=== PATIENT | female | born 1990 | race Caucasian/White ===

== ENCOUNTER 2018-04-30 01:24 | Emergency (ER) | payer SELFPAY ==
--- NOTE | 2018-04-30 01:34 | Emergency Department Record ---
History of Present Illness - General Stated Complaint: ABDOMINAL PAIN Time Seen by Provider: 04/30/18 01:26 Source: Patient Mode of Arrival: Ambulatory Limitations: No limitations - History of Present Illness Initial Comments: 27 yo presents with a few days of pain in the lower groin/labial area. She reports she had the area drained a month ago at [facility]. The area improved but the pain and swelling returned the last two days. She was given a referral for OBGYN but she did not follow up at that time. [facility] records indicate she had and I and D of a Bartholin's gland cyst. No abnormal vaginal bleeding or discharge. MD Complaint: Abdominal pain -: Days(s) Location: Suprapubic Radiation: Suprapubic Migration to: Suprapubic Severity: Moderate Quality: Aching Consistency: Constant Improves With: Nothing Worsens With: Nothing Context: Recent surgery/procedure (One month ago) Associated Symptoms: Denies other symptoms - Related Data Previous Rx's Medication Instructions Recorded Doxycycline Hyclate 100 mg PO BID #14 tab.dr 04/30/18 Hydrocodone/Acetaminophen [[place] 1 each PO Q6H #10 tablet 04/30/18 5-325 Tablet] Allergies Allergy/AdvReac Type Severity Reaction Status Date / Time ketorolac [From Toradol] Allergy HIVES Verified 04/30/18 02:19 Review of Systems Constitutional: Denies: Chills, Fever, Malaise, Weakness Eyes: Denies: Eye discharge ENT: Denies: Congestion, Throat pain Respiratory: Denies: Cough, Dyspnea Cardiovascular: Denies: Chest pain, Syncope Endocrine: Denies: Fatigue Gastrointestinal: Denies: Abdominal pain, Diarrhea, Nausea, Vomiting Genitourinary: Reports: Other (labial swelling). Denies: Dysuria, Frequency, Hematuria, Urgency Musculoskeletal: Denies: Arthralgia, Back pain, Myalgia Skin: Denies: Bruising, Change in color, Rash Neurological: Denies: Headache Psychiatric: Denies: Anxiety Hematological/Lymphatic: Denies: Easy bleeding, Easy bruising, Swollen glands Physical Exam - General General Appearance: Alert, Oriented x3, Cooperative, No acute distress Limitations: No limitations - Head Head exam: Normal inspection - Eye Eye exam: Normal appearance. negative: Conjunctival injection, Scleral icterus - ENT ENT exam: Normal exam Ear exam: Normal external inspection Nasal Exam: Normal inspection Mouth exam: Normal external inspection - Neck Neck exam: Normal inspection - Respiratory Respiratory exam: Normal lung sounds bilaterally. negative: Respiratory distress, Rhonchi, Stridor, Wheezes - Cardiovascular Cardiovascular Exam: Regular rate, Normal rhythm, Normal heart sounds - GI/Abdominal GI/Abdominal exam: Soft. negative: Distended, Guarding, Rebound, Rigid, Tenderness - exam: Abnormal external exam, Other (tender, swollen right posterior labial area with palpable fluctuance, normal anus). negative: Adnexal mass (L), Adnexal mass (R), Adnexal tenderness (L), Adnexal tenderness (R), Vaginal discharge - Extremities Extremities exam: Normal inspection - Back Back exam: Denies: CVA tenderness (R), CVA tenderness (L), Tenderness - Neurological Neurological exam: Alert, Normal gait, Oriented X3 - Psychiatric Psychiatric exam: Normal affect, Normal mood. negative: Agitated, Anxious - Skin Skin exam: Dry, Intact, Normal color, Warm Course - Reevaluation(s) Reevaluation #1: The examination demonstrates an area of tenderness, swelling consistent with a Bartholins gland cyst possibly infected. I recommended drainage for symptomatic relief. I explained there are no immediately available Word Catheter's available but the area can be drained for relief She will then need to call for MACHINE TESTER follow up either through her [facility] referral or a number for local MACHINE TESTER will be provided as well. We discussed the procedure, risk of pain, bleeding, temporary relief. Verbal consent obtained with understanding. Procedure I and D of abscess/Cyst Betadine Prep 11 blade used to make a 1cm incision Serosanguinous drainage with slight pus then blood Given no word catheter available I tried to place 1/4 plain pack but after several attempts it would not stay in the cavity The patient tolerated this well She is to call the MACHINE TESTER tomorrow for close follow up 04/30/18 02:08 Disposition Disposition: Discharge Clinical Impression: Bartholin's gland abscess, Encounter for incision and drainage procedure Disposition: Home, Self-Care Condition: (1) Good Instructions: Abscess Incision and Drainage (ED), Bartholin Cyst (ED) Additional Instructions: Call the numbers provided for follow up with MACHINE TESTER to evaluate the recurrent Bartholin Gland cyst infection Be seen sooner if you have uncontrolled pain, fever, swelling You may take sitz baths daily to clean the area and for comfort Off work Saturday and . Prescriptions: Doxycycline Hyclate 100 mg PO BID #14 tab. Hydrocodone/Acetaminophen [[place] 5-325 Tablet] 1 each PO Q6H #10 tablet Referrals: KAILEE LANDRY D.O. [DOCTOR OF OSTEOPATH] - Forms: Patient Portal Access Time of Disposition: 02:23 Quality - Quality Measures Quality Measures: N/A - Blood Pressure Screening Does Patient Have Any of the Following: No Blood Pressure Classification: Normal BP Reading Systolic Measurement: 113 Diastolic Measurement: 65 Screening for High Blood Pressure: < Normal BP, F/U Not Required > [G8783] Pre-Hypertensive Follow-up Interventions: Referral to alternative/primary care provider.
[2018-04-30] MEDS ORDERED: HYDROCODONE/APAP 7.5/325MG TABLET PO ONE (01:43)
[2018-04-30] MEDS ORDERED: DOXYCYCLINE HYCLATE 100 MG CAPSULE PO ONE (02:06)
== END 2018-04-30 02:38 | disposition home or self-care (01) ==
LOC: ER 01:24
DX: N75.1 Abscess of Bartholin's gland (principal)
CPT/HCPCS: 56420; 99284

== ENCOUNTER 2018-07-18 09:53 | Emergency (ER) | payer SELFPAY ==
--- NOTE | 2018-07-18 11:16 | Emergency Department Record ---
History of Present Illness - General Chief complaint: Pain Stated complaint: RIGHT SHOULDER PAIN Time Seen by Provider: 07/18/18 10:21 Source: Patient Mode of Arrival: Ambulatory Limitations: No limitations - History of Present Illness Initial comments: pt has been having pain in her r shoulder for 5 mos. she had the same pain a year ago and saw a dr and was told that it was her rotator cuff. the pain got better after 2 mos but then got worse again 5 mos ago. she decided to come get checked out today. MD Complaint: Extremity pain Onset/Timin -: Year(s) Location: Right, Shoulder History of Same: Yes Radiation: Distal Severity scale (1-10): 7 Quality: Dull Consistency: Constant Improves with: Nothing Worsens with: Exertion Associated Symptoms: Denies other symptoms - Related Data Home Medications Medication Instructions Recorded Confirmed Last Taken No Home Med [NO HOME MEDS] 07/18/18 07/18/18 Unknown Allergies Allergy/AdvReac Type Severity Reaction Status Date / Time ketorolac [From Toradol] Allergy HIVES Verified 04/30/18 02:19 Travel Screening - Travel/Exposure Within Last 30 Days Have you traveled within the last 30 days?: No Review of Systems Reviewed: No additional complaints except as noted below Constitutional: Reports: As per HPI. Denies: Chills, Fever, Malaise, Night sweats, Weakness, Weight change Eyes: Reports: As per HPI. Denies: Eye discharge, Eye pain, Photophobia, Vision change ENT: Reports: As per HPI. Denies: Congestion, Dental pain, Ear pain, Epistaxis, Hearing loss, Throat pain Respiratory: Reports: As per HPI. Denies: Cough, Dyspnea, Hemoptysis, Stridor, Wheezes Cardiovascular: Reports: As per HPI. Denies: Arrhythmia, Chest pain, Dyspnea on exertion, Edema, Murmurs, Orthopnea, Palpitations, Paroxysmal nocturnal dyspnea, Rheumatic Fever, Syncope Endocrine: Reports: As per HPI. Denies: Fatigue, Heat or cold intolerance, Polydipsia, Polyuria Gastrointestinal: Reports: As per HPI. Denies: Abdominal pain, Constipation, Diarrhea, Hematemesis, Hematochezia, Melena, Nausea, Vomiting Genitourinary: Reports: As per HPI. Denies: Abnormal menses, Discharge, Dyspareunia, Dysuria, Frequency, Hematuria, Incontinence, Retention, Urgency Musculoskeletal: Reports: As per HPI. Denies: Arthralgia, Back pain, Gout, Joint swelling, Myalgia, Neck pain Skin: Reports: As per HPI. Denies: Bruising, Change in color, Change in hair/nails, Lesions, Pruritus, Rash Neurological: Reports: As per HPI. Denies: Abnormal gait, Confusion, Headache, Numbness, Paresthesias, Seizure, Tingling, Tremors, Vertigo, Weakness Psychiatric: Reports: As per HPI. Denies: Anxiety, Auditory hallucinations, Depression, Homicidal thoughts, Suicidal thoughts, Visual hallucinations Hematological/Lymphatic: Reports: As per HPI. Denies: Anemia, Blood Clots, Easy bleeding, Easy bruising, Swollen glands Past Medical History - SOCIAL HISTORY Smoking Status: Current every day smoker - RESPIRATORY Hx Respiratory Disorders: No - CARDIOVASCULAR Hx Cardio Disorders: No - NEURO Hx Neuro Disorders: No - GI Hx GI Disorders: No - Hx Genitourinary Disorders: Yes Comment:: Ovarian cysts - ENDOCRINE Hx Endocrine Disorders: No - MUSCULOSKELETAL Hx Musculoskeletal Disorders: No - PSYCH Hx Psych Problems: No - HEMATOLOGY/ONCOLOGY Hx Hematology/Oncology Disorders: No Family Medical History Any Significant Family History?: Yes Hx Cancer: Mother, Grandparents Hx Resp Disorders: Grandparents Physical Exam - General General Appearance: Alert, Oriented x3, Cooperative, Mild distress - Head Head exam: Normal inspection - Eye Eye exam: Normal appearance, PERRL, EOMI Pupils: Normal accommodation - ENT ENT exam: Normal exam, Mucous membranes moist, Normal external ear exam, Normal orophraynx Ear exam: Normal external inspection. negative: External canal tenderness Nasal Exam: Normal inspection. negative: Discharge, Sinus tenderness Mouth exam: Normal external inspection, Tongue normal Teeth exam: Normal inspection. negative: Dental caries Throat exam: Normal inspection. negative: Tonsillar erythema, Tonsillar exudate - Neck Neck exam: Normal inspection, Full ROM. negative: Tenderness - Respiratory Respiratory exam: Normal lung sounds bilaterally. negative: Respiratory distress - Cardiovascular Cardiovascular Exam: Regular rate, Normal rhythm, Normal heart sounds - GI/Abdominal GI/Abdominal exam: Soft, Normal bowel sounds. negative: Tenderness - Rectal Rectal exam: Deferred - exam: Deferred - Extremities Extremities exam: Normal capillary refill, Tenderness (tender over trapezius and rotator cuff). negative: Full ROM - Back Back exam: Reports: Normal inspection, Full ROM. Denies: Muscle spasm, Rash noted, Tenderness - Neurological Neurological exam: Alert, CN II-XII intact, Normal gait, Oriented X3 - Psychiatric Psychiatric exam: Normal affect, Normal mood - Skin Skin exam: Dry, Intact, Normal color, Warm Course Vital Signs 07/18/18 09:56 Temperature 98.3 F Pulse Rate 78 Respiratory 20 Rate Blood Pressure 143/90 Pulse Ox 100 - Reevaluation(s) Reevaluation #1: 07/18/18 11:16 pt upset that she couldnt have an immediate mri. she is concerned because her mother had a tumor in her shoulder. it was explained that xrays need to be done first and that she would get a referral to ortho Disposition Disposition: Discharge Clinical Impression: Injury of right rotator cuff Qualifiers: Encounter type: initial encounter Qualified Code(s): S46.001A - Unspecified injury of muscle(s) and tendon(s) of the rotator cuff of right shoulder, initial encounter Disposition: Home, Self-Care Condition: (1) Good Instructions: Rotator Cuff Injury (ED) Additional Instructions: follow up with orthopedic doctor. return sooner if worse. apply ice and moist heat. motrin with food for pain. wear sling for 3 days only. Referrals: VIDAL PERSAUD [DOCTOR OF OSTEOPATH] - [facility] Specialty Clinics [Provider Group] Forms: Patient Portal Access Quality - Quality Measures Quality Measures: N/A - Blood Pressure Screening Does Patient Have Any of the Following: No Blood Pressure Classification: Hypertensive Reading Systolic Measurement: 143 Diastolic Measurement: 90 Screening for High Blood Pressure: < First Hypertensive BP, F/U Documented > [G8950] First Hypertensive Follow-up Interventions: Follow-up with rescreen GT 1 day and LT 4 weeks.
[2018-07-18] MEDS ORDERED: HYDROCODONE/APAP 5/325MG TABLET PO ONE (11:50)
--- NOTE | 2018-07-22 05:59 | RADIOLOGY REPORT ---
EXAM: RIGHT SHOULDER HISTORY: CHRONIC RIGHT SHOULDER PAIN, NO KNOWN INJURY. TECHNIQUE: Three views of the right shoulder were obtained. Comparison: None. FINDINGS: No evidence of fracture or dislocation. No significant degenerative findings. IMPRESSION: UNREMARKABLE RADIOGRAPHIC APPEARANCE OF THE RIGHT SHOULDER. JOB NUMBER: [id number] [facility]
--- NOTE | 2018-07-22 06:02 | RADIOLOGY REPORT ---
EXAM: CERVICAL SPINE HISTORY: RIGHT SHOULDER PAIN FOR ONE YEAR, NO KNOWN INJURY. TECHNIQUE: Six views of the cervical spine were obtained. Comparison: None. FINDINGS: Straightening and minimal levocurvature of the cervical spine. The vertebral body heights are maintained. Otherwise intact alignment. The disk space heights appear preserved. No significant degenerative findings. No appreciable neural foraminal stenosis. IMPRESSION: MINIMAL CERVICAL SPINE LEVOCURVATURE AND STRAIGHTENING, NONSPECIFIC AND MAY BE POSITIONAL. OTHERWISE, UNREMARKABLE RADIOGRAPHIC APPEARANCE OF THE CERVICAL SPINE. JOB NUMBER: [id number] [facility]
== END 2018-07-18 12:00 | disposition home or self-care (01) ==
LOC: ER 09:53
DX: S46.001A Unspecified injury of muscle(s) and tendon(s) of the rotator cuff of right shoulder, initial encounter (principal); M54.2 Cervicalgia; X58.XXXA Exposure to other specified factors, initial encounter; F17.210 Nicotine dependence, cigarettes, uncomplicated
CPT/HCPCS: 72050; 99283; 99284

== ENCOUNTER 2018-07-26 17:55 | Emergency (ER) | payer SELFPAY ==
--- NOTE | 2018-07-26 18:07 | Emergency Department Record ---
History of Present Illness - General Chief complaint: Rash Stated complaint: RASH ON NECK Time Seen by Provider: 07/26/18 18:03 Source: Patient Mode of Arrival: Ambulatory Limitations: No limitations - History of Present Illness Initial comments: 27 yo female presents to ED for evaluation of a painful rash to the left posterior neck that the patient reports appeared this morning. Patient reports a history of similar symptoms previously with resolution following treatment with acyclovir. Patient denies fevers, chills, or recent illness, denies health problems at her baseline. MD complaint: Rash Onset/Timin -: Days(s) Location: Neck Severity: Moderate Severity scale (1-10): 7 Quality: Burning Consistency: Constant Improves with: None Worsens with: Palpation Context: None Associated symptoms: Itching Treatments Prior to Arrival: None - Related Data Previous Rx's Medication Instructions Recorded Acyclovir 400 mg PO 5XD #35 tablet 07/26/18 Allergies Allergy/AdvReac Type Severity Reaction Status Date / Time ketorolac [From Toradol] Allergy HIVES Verified 04/30/18 02:19 Travel Screening - Travel/Exposure Within Last 30 Days Have you traveled within the last 30 days?: No Review of Systems Constitutional: Denies: Chills, Fever, Malaise, Night sweats Eyes: Denies: Eye discharge, Eye pain ENT: Denies: Congestion, Ear pain, Epistaxis Respiratory: Denies: Cough, Dyspnea Cardiovascular: Denies: Chest pain, Dyspnea on exertion Endocrine: Denies: Fatigue, Heat or cold intolerance Gastrointestinal: Denies: Abdominal pain, Nausea, Vomiting Genitourinary: Denies: Incontinence, Retention Musculoskeletal: Denies: Arthralgia, Back pain Skin: Reports: Rash. Denies: Bruising, Change in color Neurological: Denies: Abnormal gait, Confusion, Headache Psychiatric: Denies: Anxiety Hematological/Lymphatic: Denies: Anemia, Blood Clots Past Medical History - SOCIAL HISTORY Smoking Status: Current every day smoker - RESPIRATORY Hx Respiratory Disorders: No - CARDIOVASCULAR Hx Cardio Disorders: No - NEURO Hx Neuro Disorders: No - GI Hx GI Disorders: No - Hx Genitourinary Disorders: Yes Comment:: Ovarian cysts - ENDOCRINE Hx Endocrine Disorders: No - MUSCULOSKELETAL Hx Musculoskeletal Disorders: No - PSYCH Hx Psych Problems: No - HEMATOLOGY/ONCOLOGY Hx Hematology/Oncology Disorders: No Family Medical History Any Significant Family History?: No Hx Cancer: Mother, Grandparents Hx Resp Disorders: Grandparents Physical Exam - General General Appearance: Alert, Oriented x3, Cooperative, Mild distress Limitations: No limitations - Head Head exam: Atraumatic, Normocephalic, Normal inspection Head exam detail: negative: Abrasion, Contusion, Candelaira's sign, General tenderness, Hematoma, Laceration - Eye Eye exam: Normal appearance. negative: Conjunctival injection, Periorbital swelling, Periorbital tenderness, Scleral icterus - ENT Ear exam: negative: Auricular hematoma, Auricular trauma Nasal Exam: negative: Active bleeding, Discharge, Dried blood, Foreign body Mouth exam: negative: Drooling, Laceration, Muffled voice, Tongue elevation - Neck Neck exam: Other (Vesicular rash to the left posterior paracervical region on examination). negative: Meningismus, Tenderness - Respiratory Respiratory exam: Normal lung sounds bilaterally. negative: Respiratory distress, Rhonchi, Stridor, Wheezes - Cardiovascular Cardiovascular Exam: Regular rate, Normal rhythm, Normal heart sounds - GI/Abdominal GI/Abdominal exam: Soft. negative: Rebound, Rigid, Tenderness - Rectal Rectal exam: Deferred - exam: Deferred - Extremities Extremities exam: Normal inspection. negative: Pedal edema, Tenderness - Back Back exam: Denies: CVA tenderness (R), CVA tenderness (L) - Neurological Neurological exam: Alert, Normal gait, Oriented X3 - Psychiatric Psychiatric exam: Normal affect, Normal mood - Skin Skin exam: Rash Type of lesion: Rash Distribution of rash: Neck Description of rash: Blisters Course - Reevaluation(s) Reevaluation #1: 07/26/18 18:11 Acute rash to the left posterior neck appears c/w possible shingles, given the patient's clinical appearance, will treat with acyclovir as directed. Patient appears stable for discharge at this time. Disposition Disposition: Discharge Clinical Impression: Shingles Qualifiers: Herpes zoster complications: without complications Qualified Code(s): B02.9 - Zoster without complications Disposition: Home, Self-Care Condition: (2) Stable Instructions: Shingles (ED) Additional Instructions: Return to ED if your symptoms worsen or if you have any concerns. Acyclovir as directed. Follow-up with your family doctor in 3-5 days as directed. Prescriptions: Acyclovir 400 mg PO 5XD #35 tablet Forms: Patient Portal Access Time of Disposition: 18:06 Quality - Quality Measures Quality Measures: N/A - Blood Pressure Screening Does Patient Have Any of the Following: No Blood Pressure Classification: Pre-Hypertensive BP Reading Systolic Measurement: 121 Diastolic Measurement: 82 Screening for High Blood Pressure: < Pre-Hypertensive BP, F/U Documented > [G8950] Pre-Hypertensive Follow-up Interventions: Referral to alternative/primary care provider.
== END 2018-07-26 18:15 | disposition home or self-care (01) ==
LOC: ER 17:55
DX: B02.9 Zoster without complications (principal); F17.210 Nicotine dependence, cigarettes, uncomplicated
CPT/HCPCS: 99282

== ENCOUNTER 2018-11-30 15:30 | Emergency (ER) | payer MEDICAID ==
[2018-11-30] MEDS ORDERED: ONDANSETRON HCL IV 4 MG/2 ML VIAL IVP ONE (15:44)
[2018-11-30] MEDS ORDERED: MORPHINE SULFATE 5 MG/ML VIAL IVP ONE ×2 (15:44→16:47)
[2018-11-30] MEDS ORDERED: 0.9 % SODIUM CHLORIDE 1,000 ML BAG IV ONE (15:44)
--- NOTE | 2018-11-30 15:49 | Emergency Department Record ---
History of Present Illness - General Chief Complaint: Abdominal Pain Stated Complaint: LUMP RT SIDE ABD/PAINFUL Time Seen by Provider: 11/30/18 15:44 Source: Patient Mode of Arrival: Ambulatory Limitations: No limitations - History of Present Illness Initial Comments: 28 yo female presents with about two days of increasing upper abdominal pain. She has nausea without vomiting. Over the last 2-3 months she has had fullness or lump in the mid upper abdomen. No vomiting. No diarrhea. No fever. She had her gall bladder out in 2010 at [facility]. She does not recall who her surgeon was at that time. MD Complaint: Abdominal pain -: Month(s) Location: Epigastric Radiation: Epigastric Migration to: Epigastric Severity: Moderate Quality: Aching Consistency: Constant Improves With: Rest Worsens With: Movement Associated Symptoms: Anorexia - Related Data Patient : No Previous Rx's Medication Instructions Recorded Hydrocodone/Acetaminophen [[place] 1 tab PO Q6H PRN #10 tab 11/30/18 5mg/325mg] Allergies Allergy/AdvReac Type Severity Reaction Status Date / Time ketorolac [From Toradol] Allergy HIVES Verified 11/30/18 15:47 Review of Systems Constitutional: Denies: Chills, Fever, Malaise, Weakness Eyes: Denies: Eye discharge ENT: Denies: Congestion, Throat pain Respiratory: Denies: Cough, Dyspnea Cardiovascular: Denies: Chest pain, Palpitations, Syncope Endocrine: Denies: Fatigue, Polydipsia, Polyuria Gastrointestinal: Reports: As per HPI, Abdominal pain, Nausea. Denies: Diarrhea, Vomiting Genitourinary: Denies: Dysuria, Hematuria, Urgency Musculoskeletal: Denies: Arthralgia, Back pain, Myalgia Skin: Denies: Bruising, Change in color, Rash Neurological: Denies: Headache Psychiatric: Denies: Anxiety Hematological/Lymphatic: Denies: Easy bleeding, Easy bruising Past Medical History - SOCIAL HISTORY Smoking Status: Current every day smoker - RESPIRATORY Hx Respiratory Disorders: No - CARDIOVASCULAR Hx Cardio Disorders: No - NEURO Hx Neuro Disorders: No - GI Hx GI Disorders: No - Hx Genitourinary Disorders: Yes Comment:: Ovarian cysts - ENDOCRINE Hx Endocrine Disorders: No - MUSCULOSKELETAL Hx Musculoskeletal Disorders: No - PSYCH Hx Psych Problems: No - HEMATOLOGY/ONCOLOGY Hx Hematology/Oncology Disorders: No Family Medical History Hx Cancer: Mother, Grandparents Hx Resp Disorders: Grandparents Physical Exam - General General Appearance: Alert, Oriented x3, Cooperative, No acute distress Limitations: No limitations - Head Head exam: Atraumatic, Normal inspection - Eye Eye exam: Normal appearance. negative: Conjunctival injection - ENT ENT exam: Normal exam, Mucous membranes moist Ear exam: Normal external inspection Nasal Exam: Normal inspection Mouth exam: Normal external inspection Teeth exam: Normal inspection Throat exam: Normal inspection - Neck Neck exam: Normal inspection - Respiratory Respiratory exam: Normal lung sounds bilaterally. negative: Respiratory distress - Cardiovascular Cardiovascular Exam: Regular rate, Normal rhythm, Normal heart sounds - GI/Abdominal GI/Abdominal exam: Soft, Guarding (tender upper abdomen with an indistinct fullness in the epigastrium, otherwise the lower abdomen is very soft and not tender), Tenderness. negative: Distended, Hernia (No distinct palpable hernia), Rebound - Rectal Rectal exam: Deferred - exam: Deferred - Extremities Extremities exam: Normal inspection, Full ROM, Normal capillary refill. neg ative: Tenderness - Back Back exam: Denies: CVA tenderness (R), CVA tenderness (L) - Neurological Neurological exam: Alert, Oriented X3 - Psychiatric Psychiatric exam: Normal affect, Normal mood - Skin Skin exam: Dry, Intact, Normal color, Warm Course - Reevaluation(s) Reevaluation #1: 11/30/18 16:19 The CBC is normal The UA is normal The HCG is normal 11/30/18 19:[address] demonstrated a tiny upper midline hernia otherwise no acute abnormality The patient with be referred to the general surgery clinic for follow up We discussed reasons for return to the ED for recheck if uncontrolled pain, fever, vomiting or any new concerns Medical Decision Making - Lab Data Result diagrams: 11/30/18 15:50 11/30/18 15:50 Disposition Disposition: Discharge Clinical Impression: Abdominal pain Qualifiers: Abdominal location: unspecified location Qualified Code(s): R10.9 - Unspecified abdominal pain Ventral hernia Qualifiers: Obstruction and gangrene presence: without obstruction or gangrene Qualified Code(s): K43.9 - Ventral hernia without obstruction or gangrene Disposition: Home, Self-Care Condition: (1) Good Instructions: Ventral Hernia (ED) Additional Instructions: Call for a new family doctor for the next available follow up appointment Return to the ER for a recheck if worse, any new concerns or questions Take the prescriptions provided as directed Prescriptions: Hydrocodone/Acetaminophen [[place] 5mg/325mg] 1 tab PO Q6H PRN #10 tab PRN Reason: Pain - General Referrals: JENNY ROSADO M.D. [MEDICAL DOCTOR] - Dash Vergara [DOCTOR OF OSTEOPATH] - [facility] Specialty Clinics [Provider Group] Forms: Patient Portal Access Time of Disposition: 19:32 Quality - Quality Measures Quality Measures: N/A - Blood Pressure Screening Does Patient Have Any of the Following: No Blood Pressure Classification: Pre-Hypertensive BP Reading Systolic Measurement: 129 Diastolic Measurement: 86 Screening for High Blood Pressure: < Pre-Hypertensive BP, F/U Documented > [G8950] Pre-Hypertensive Follow-up Interventions: Referral to alternative/primary care provider.
[2018-11-30 16:01] LABS: ABSOLUTE NEUTROPHIL COUNT 6.13; BASO % 0.2 % (0-6); EOS % 0.8 % (0-6); GRAN % 67.4 % (47-80); HEMATOCRIT 42.3 % (35.0-47.0); HEMOGLOBIN 14.1 gm/dl (11.6-16.0); LYMPH % 26.8 % (16-45); MEAN CELL VOLUME 93.4 fl (81-97); MEAN CORPUSCULAR HEMOGLOBIN 31.1 pg (27-33); MEAN CORPUSCULAR HGB CONC 33.3 g/dl (32-36); MEAN PLATELET VOLUME 12.3 fl (7.4-10.4); MONO % 4.8 % (0-9); PLATELET COUNT 157 K/uL (130-400); RED BLOOD COUNT 4.53 M/uL (3.80-5.40); RED CELL DISTRIBUTION WIDTH 13.8 % (11.5-14.5); WHITE BLOOD COUNT W/O DIFF 9.1 K/uL (4.2-12.2)
[2018-11-30 16:05] LABS: URINE APPEARANCE CLEAR; URINE BILIRUBIN NEGATIVE (NEGATIVE); URINE BLOOD NEGATIVE (NEGATIVE); URINE COLOR YELLOW; URINE GLUCOSE (UA) NEGATIVE (NEGATIVE); URINE KETONE NEGATIVE (NEGATIVE); URINE LEUKOCYTE ESTERASE NEGATIVE (NEGATIVE); URINE NITRITE NEGATIVE (NEGATIVE); URINE PROTEIN NEGATIVE (NEGATIVE); URINE UROBILINOGEN 0.2 E.U./dL (0.20 - 1.00)
[2018-11-30 16:28] LABS: BLOOD UREA NITROGEN 9 mg/dL (6-20); CREATININE 0.5 mg/dL (0.5-0.9); EST GLOMERULAR FILTRATION RATE > 60 mL/min; LIPASE 19 U/L (13-60); TOTAL PROTEIN 7.7 g/dL (6.6-8.7)
[2018-11-30 16:30] LABS: GLUCOSE,RANDOM 78 mg/dL (74-109)
[2018-11-30 16:33] LABS: ALBUMIN 5.1 g/dL (4.0-5.0); ALKALINE PHOSPHATASE 89 U/L (35-104); ALT/SGPT 13 U/L (<33); AST/SGOT 28 U/L (10.0-35.0)
[2018-11-30] MEDS ORDERED: ACETAMINOPHEN 1,000 MG/100 ML BTL IVPB ONE (16:46)
[2018-11-30] MEDS ORDERED: HYDROCODONE/APAP 5/325MG TABLET PO ONE (19:31)
--- NOTE | 2018-12-01 08:05 | CT SCAN REPORT ---
EXAM: CT OF THE ABDOMEN AND PELVIS WITH CONTRAST HISTORY: UPPER ABDOMINAL PAIN WITH A PALPABLE LUMP IN THE EPIGASTRIC REGION. PRIOR CHOLECYSTECTOMY AND APPENDECTOMY. TECHNIQUE: Standard CT imaging of the abdomen and pelvis with intravenous contrast were obtained. Delayed images are obtained through the kidneys. Comparison: None. FINDINGS: The lung bases are clear. The liver is unremarkable. The gallbladder has been resected. The common bile duct is not overly dilated. The pancreas is unremarkable. The spleen is normal in size. The adrenal glands and kidneys appear normal. The stomach and small bowel are unremarkable. The bladder is unremarkable. There is a small amount of free fluid in the cul-de-sac is likely physiologic. The colon appears normal. The appendix has been resected. No retroperitoneal or mesenteric adenopathy. No free air is seen. The bones appear normal. Just beneath the xiphoid process, there is a small midline ventral wall hernia containing only fat. No other ventral wall hernia. IMPRESSION: SMALL UPPER MIDLINE VENTRAL WALL HERNIA CONTAINING ONLY FAT. NO EVIDENCE FOR STRANGULATION, OTHERWISE NEGATIVE CT OF THE ABDOMEN AND PELVIS. JOB NUMBER: [id number] [facility]
== END 2018-11-30 19:45 | disposition home or self-care (01) ==
LOC: ER 15:30
DX: K43.9 Ventral hernia without obstruction or gangrene (principal); R10.13 Epigastric pain; F17.210 Nicotine dependence, cigarettes, uncomplicated
CPT/HCPCS: 74177; 80053; 81003; 81025; 83690; 85025; 96365; 96375; 96376; 99284; J2405; J7030

== ENCOUNTER 2018-12-08 07:30 | Emergency (ER) | payer MEDICAID ==
[2018-12-08] MEDS ORDERED: 0.9 % SODIUM CHLORIDE 1,000 ML BAG IV ONE (07:38)
[2018-12-08] MEDS ORDERED: MORPHINE SULFATE 5 MG/ML VIAL IVP ONE (07:38)
--- NOTE | 2018-12-08 07:42 | Emergency Department Record ---
History of Present Illness - General Stated Complaint: HERNIA/PAIN Time Seen by Provider: 12/08/18 07:37 Source: Patient Mode of Arrival: Ambulatory Limitations: No limitations - History of Present Illness Initial Comments: 28 yo female presents with a ventral wall hernia that is painful. She was evaluated in the surgery clinic and scheduled in a week for surgery. The pain returned. No fever. No vomiting. No diarrhea. MD Complaint: Abdominal pain -: Week(s) Location: Epigastric Radiation: Epigastric Migration to: Epigastric Severity: Moderate Quality: Aching, Sharp Improves With: Nothing Worsens With: Movement Context: Other (prior surgery) Associated Symptoms: Denies other symptoms - Related Data Previous Rx's Medication Instructions Recorded Hydrocodone/Acetaminophen [Kane 1 tab PO Q6H PRN #10 tab 11/30/18 5mg/325mg] Allergies Allergy/AdvReac Type Severity Reaction Status Date / Time ketorolac [From Toradol] Allergy HIVES Verified 11/30/18 15:47 Review of Systems Constitutional: Denies: Chills, Fever, Malaise, Weakness Eyes: Denies: Eye discharge ENT: Denies: Congestion, Throat pain Respiratory: Denies: Cough Cardiovascular: Denies: Chest pain, Syncope Endocrine: Denies: Fatigue Gastrointestinal: Denies: Abdominal pain, Diarrhea, Nausea, Vomiting Genitourinary: Denies: Dyspareunia, Dysuria, Urgency Musculoskeletal: Denies: Arthralgia, Back pain, Myalgia Skin: Denies: Bruising, Change in color, Rash Neurological: Denies: Headache Psychiatric: Denies: Anxiety Hematological/Lymphatic: Denies: Easy bleeding, Easy bruising Past Medical History - SOCIAL HISTORY Smoking Status: Current every day smoker - RESPIRATORY Hx Respiratory Disorders: No - CARDIOVASCULAR Hx Cardio Disorders: No - NEURO Hx Neuro Disorders: No - GI Hx GI Disorders: No - Hx Genitourinary Disorders: Yes Comment:: Ovarian cysts - ENDOCRINE Hx Endocrine Disorders: No - MUSCULOSKELETAL Hx Musculoskeletal Disorders: No - PSYCH Hx Psych Problems: No - HEMATOLOGY/ONCOLOGY Hx Hematology/Oncology Disorders: No Family Medical History Hx Cancer: Mother, Grandparents Hx Resp Disorders: Grandparents Physical Exam - General General Appearance: Alert, Oriented x3, Cooperative, No acute distress Limitations: No limitations - Head Head exam: Atraumatic - Eye Eye exam: Normal appearance, PERRL. negative: Conjunctival injection, Scleral icterus - ENT ENT exam: Normal exam Ear exam: Normal external inspection Nasal Exam: Normal inspection Mouth exam: Normal external inspection - Neck Neck exam: Normal inspection - Respiratory Respiratory exam: Normal lung sounds bilaterally. negative: Respiratory distress - Cardiovascular Cardiovascular Exam: Regular rate, Normal rhythm, Normal heart sounds - GI/Abdominal GI/Abdominal exam: Soft, Normal bowel sounds, Tenderness (tender mid upper with small palpable firm area) - Rectal Rectal exam: Deferred - exam: Deferred - Extremities Extremities exam: Normal inspection - Back Back exam: Denies: CVA tenderness (R), CVA tenderness (L) - Neurological Neurological exam: Alert, Oriented X3 - Psychiatric Psychiatric exam: Normal affect, Normal mood - Skin Skin exam: Dry, Intact, Normal color, Warm Course - Reevaluation(s) Reevaluation #1: 12/08/18 07:42 The case was discussed with Dr Vergara Disposition Disposition: Discharge Clinical Impression: Ventral hernia Disposition: Home, Self-Care Condition: (1) Good Additional Instructions: Discharge to outpatient surgery Forms: Patient Portal Access Time of Disposition: 07:42 Quality - Quality Measures Quality Measures: N/A - Blood Pressure Screening Does Patient Have Any of the Following: No Blood Pressure Classification: Pre-Hypertensive BP Reading Systolic Measurement: 120 Diastolic Measurement: 83 Screening for High Blood Pressure: < Pre-Hypertensive BP, F/U Documented > [G8950] Pre-Hypertensive Follow-up Interventions: Referral to alternative/primary care provider.
== END 2018-12-08 08:37 | disposition home or self-care (01) ==
LOC: ER 07:30
DX: K43.9 Ventral hernia without obstruction or gangrene (principal); F17.210 Nicotine dependence, cigarettes, uncomplicated
CPT/HCPCS: 81025; J7030

== ENCOUNTER 2018-12-08 08:02 | Day surgery (SDC) | payer MEDICAID ==
[2018-12-08] MEDS ORDERED: PROPOFOL 10 MG/ML VIAL IV ONE (08:03)
[2018-12-08] MEDS ORDERED: ONDANSETRON HCL IV 4 MG/2 ML VIAL IVP ONE (08:03)
[2018-12-08] MEDS ORDERED: LIDOCAINE 2% MDV (20MG/ML) 20ML VIAL IV ONE (08:03)
[2018-12-08] MEDS ORDERED: FENTANYL PF 100MCG/2ML VIAL IV ONE (08:03)
[2018-12-08] MEDS ORDERED: MIDAZOLAM HCL 2MG/2ML VIAL IV ONE (08:03)
[2018-12-08] MEDS ORDERED: SEVOFLURANE 250 ML INH ONE (08:03)
[2018-12-08] MEDS ORDERED: CEFAZOLIN 2 Gram 2 GM/50 ML BAG IVPB SCH (08:15)
[2018-12-08] MEDS ORDERED: ACETAMINOPHEN 1,000 MG/100 ML BTL IVPB ONE (08:30)
[2018-12-08] MEDS ORDERED: RINGERS SOLUTION,LACTATED 1,000 ML IV ONE (08:37)
[2018-12-08] MEDS ORDERED: BUPIVACAINE 0.25% W/EPI MPF 30ML VIAL SQ ONE (09:28)
[2018-12-08] MEDS ORDERED: MORPHINE SULFATE (PACU ONLY) 4 MG/ML VIAL IVP ONE (10:04)
[2018-12-08] MEDS ORDERED: HYDROCODONE/APAP 5/325MG TABLET PO ONE (10:23)
--- NOTE | 2018-12-09 08:20 | Physician Courtesy Letter ---
I saw Ms. Leal in the office on 12/08/2018 in regard to pain and bulging in her upper abdomen. She states this has been present for the last few weeks and the pain became so great she was seen at the ER over the weekend. Workup did include CT scan which did show fat-containing epigastric hernia. PAST MEDICAL HISTORY: Negative for any significant illnesses. PAST SURGICAL HISTORY: Laparoscopic cholecystectomy, laparoscopic appendectomy. CURRENT MEDICATIONS: None. ALLERGIES: None. SOCIAL HISTORY: She does smoke. PHYSICAL EXAMINATION: VITAL SIGNS: Stable. She is afebrile. HEART: Regular rate and rhythm. LUNGS: Clear. ABDOMEN: Soft. There are multiple well-healed port sites. There is what feels like an incarcerated fat-containing epigastric hernia. Extremities show no traces of edema. IMPRESSION AND PLAN: Incisional hernia. We did discuss repair. Risks, benefits, and alternatives were discussed. Risks include bleeding, infection, acute or chronic pain, recurrence. She understood this fully. This will be scheduled shortly as an open repair. Thank you for this referral. [facility]
--- NOTE | 2018-12-09 08:20 | Operative Note ---
DATE OF SURGERY: 12/08/2018 PREOPERATIVE DIAGNOSIS: Incarcerated ventral hernia. POSTOPERATIVE DIAGNOSIS: Incarcerated ventral hernia. OPERATION: Open ventral herniorrhaphy. INDICATION: The patient is a 28-year-old female who presented to the clinic this morning with intense epigastric pain. Imaging studies done last night did reveal incarcerated fat-containing hernia. We did discuss repair. Risks, benefits, and alternatives were discussed. Risks include bleeding, infection, acute or chronic pain, recurrence. She understood this fully. PROCEDURE: Therefore, after all questions were answered, she was taken to the operating room and placed in a supine position. General anesthesia was administered per the department of anesthesia. The area around the hernia was anesthetized with a total of 10 mL of 0.25% Sensorcaine with epinephrine. A 2 cm incision was made, carried down to the hernia sac. This was dissected down to the base. Clean circumferential fascial edges were obtained. The hernia sac was then amputated and passed off the field. The hernia defect was quite small measuring about 4-5 mm. This was closed primarily with 0 Ethibond. The wound was then irrigated and closed with 3-0 and 4-0 Vicryl. Dermabond was placed. She was taken to recovery room in stable condition. FINDINGS AT THE TIME OF SURGERY: Incarcerated ventral hernia, repaired as above. MTDD
== END 2018-12-08 11:07 | disposition home or self-care (01) ==
LOC: SUR 08:02
PROVIDERS: ATTEND Surgery
DX: K43.6 Other and unspecified ventral hernia with obstruction, without gangrene (principal); F17.210 Nicotine dependence, cigarettes, uncomplicated
CPT/HCPCS: 49561; 00832; 99285 ×2; 96374; 81025; J2405; J3010; J0690; J2270; J7030; J7120

== ENCOUNTER 2018-12-11 21:00 | Emergency (ER) | payer MEDICAID ==
[2018-12-11 22:07] LABS: BASO % 0.2 % (0-6); GRAN % 55.3 % (47-80); HEMATOCRIT 36.3 % (35.0-47.0); HEMOGLOBIN 11.3 gm/dl (11.6-16.0); LYMPH % 35.5 % (16-45); MEAN CELL VOLUME 97.3 fl (81-97); MEAN CORPUSCULAR HGB CONC 31.1 g/dl (32-36); MEAN PLATELET VOLUME 11.9 fl (7.4-10.4); PLATELET COUNT 140 K/uL (130-400); RED BLOOD COUNT 3.73 M/uL (3.80-5.40); RED CELL DISTRIBUTION WIDTH 13.4 % (11.5-14.5); WHITE BLOOD COUNT W/O DIFF 5.6 K/uL (4.2-12.2)
[2018-12-11 22:08] LABS: MEAN CORPUSCULAR HEMOGLOBIN 30.2 pg (27-33); URINE APPEARANCE CLEAR; URINE BILIRUBIN NEGATIVE (NEGATIVE); URINE BLOOD LARGE (NEGATIVE); URINE COLOR YELLOW; URINE GLUCOSE (UA) NEGATIVE (NEGATIVE); URINE KETONE NEGATIVE (NEGATIVE); URINE LEUKOCYTE ESTERASE NEGATIVE (NEGATIVE); URINE NITRITE NEGATIVE (NEGATIVE); URINE PROTEIN NEGATIVE (NEGATIVE); URINE UROBILINOGEN 0.2 E.U./dL (0.20 - 1.00)
[2018-12-11 22:17] LABS: URINE BACTERIA FEW; URINE WBC 0 - 2 (0-2/hpf)
--- NOTE | 2018-12-11 22:29 | Emergency Department Record ---
History of Present Illness - General Chief Complaint: Fever Stated Complaint: POST OP /FEVER, INCISION HOT Time Seen by Provider: 12/11/18 21:17 Source: Patient Mode of Arrival: Ambulatory Limitations: No limitations - History of Present Illness Initial Comments: pt had surgery on saturday for a ventral hernia by dr yang. she is having increased pain and a temp of 99.4. she is concerned for infection. she has no drainage MD Complaint: Fever Onset/Timin -: Hour(s) Maximum Temperature: 99.4 F Associated Symptoms: Abdominal pain Treatments Prior to Arrival: Acetaminophen, Ibuprofen, Other - Related Data Previous Rx's Medication Instructions Recorded Hydrocodone/Acetaminophen [Smiley 1 tab PO Q6H PRN #10 tab 11/30/18 5mg/325mg] Allergies Allergy/AdvReac Type Severity Reaction Status Date / Time ketorolac [From Toradol] Allergy HIVES Verified 11/30/18 15:47 Travel Screening - Travel/Exposure Within Last 30 Days Have you traveled within the last 30 days?: No - Travel Symptoms Symptom Screening: Stomach Pain Review of Systems Reviewed: No additional complaints except as noted below Constitutional: Reports: As per HPI. Denies: Chills, Fever, Malaise, Night sweats, Weakness, Weight change Eyes: Reports: As per HPI. Denies: Eye discharge, Eye pain, Photophobia, Vision change ENT: Reports: As per HPI. Denies: Congestion, Dental pain, Ear pain, Epistaxis, Hearing loss, Throat pain Respiratory: Reports: As per HPI. Denies: Cough, Dyspnea, Hemoptysis, Stridor, Wheezes Cardiovascular: Reports: As per HPI. Denies: Arrhythmia, Chest pain, Dyspnea on exertion, Edema, Murmurs, Orthopnea, Palpitations, Paroxysmal nocturnal dyspnea, Rheumatic Fever, Syncope Endocrine: Reports: As per HPI. Denies: Fatigue, Heat or cold intolerance, Polydipsia, Polyuria Gastrointestinal: Reports: As per HPI, Abdominal pain. Denies: Constipation, Diarrhea, Hematemesis, Hematochezia, Melena, Nausea, Vomiting Genitourinary: Reports: As per HPI. Denies: Abnormal menses, Discharge, Dyspareunia, Dysuria, Frequency, Hematuria, Incontinence, Retention, Urgency Musculoskeletal: Reports: As per HPI. Denies: Arthralgia, Back pain, Gout, Joint swelling, Myalgia, Neck pain Skin: Reports: As per HPI. Denies: Bruising, Change in color, Change in hair/nails, Lesions, Pruritus, Rash Neurological: Reports: As per HPI. Denies: Abnormal gait, Confusion, Headache, Numbness, Paresthesias, Seizure, Tingling, Tremors, Vertigo, Weakness Psychiatric: Reports: As per HPI. Denies: Anxiety, Auditory hallucinations, Depression, Homicidal thoughts, Suicidal thoughts, Visual hallucinations Hematological/Lymphatic: Reports: As per HPI. Denies: Anemia, Blood Clots, Easy bleeding, Easy bruising, Swollen glands Past Medical History - SOCIAL HISTORY Smoking Status: Current every day smoker - RESPIRATORY Hx Respiratory Disorders: No - CARDIOVASCULAR Hx Cardio Disorders: No - NEURO Hx Neuro Disorders: No - GI Hx GI Disorders: Yes Hx Abdominal Pain: Yes Hx Nausea/Vomiting: Yes - Hx Genitourinary Disorders: Yes Comment:: Ovarian cysts - ENDOCRINE Hx Endocrine Disorders: No - MUSCULOSKELETAL Hx Musculoskeletal Disorders: No - PSYCH Hx Psych Problems: No - HEMATOLOGY/ONCOLOGY Hx Hematology/Oncology Disorders: No Family Medical History Any Significant Family History?: Yes Hx Cancer: Mother, Grandparents Hx Resp Disorders: Grandparents Physical Exam - General General Appearance: Alert, Oriented x3, Cooperative, No acute distress - Head Head exam: Normal inspection - Eye Eye exam: Normal appearance, PERRL, EOMI Pupils: Normal accommodation - ENT ENT exam: Normal exam, Mucous membranes moist, Normal external ear exam, Normal orophraynx Ear exam: Normal external inspection. negative: External canal tenderness Nasal Exam: Normal inspection. negative: Discharge, Sinus tenderness Mouth exam: Normal external inspection, Tongue normal Teeth exam: Normal inspection. negative: Dental caries Throat exam: Normal inspection. negative: Tonsillar erythema, Tonsillar exudate - Neck Neck exam: Normal inspection, Full ROM. negative: Tenderness - Respiratory Respiratory exam: Normal lung sounds bilaterally. negative: Respiratory distress - Cardiovascular Cardiovascular Exam: Regular rate, Normal rhythm, Normal heart sounds - GI/Abdominal GI/Abdominal exam: Soft, Normal bowel sounds, Tenderness, Other (incision looks good with no erythema and no drainage) - Rectal Rectal exam: Deferred - exam: Deferred - Extremities Extremities exam: Normal inspection, Full ROM, Normal capillary refill. negative: Tenderness - Back Back exam: Reports: Normal inspection, Full ROM. Denies: Muscle spasm, Rash noted, Tenderness - Neurological Neurological exam: Alert, CN II-XII intact, Normal gait, Oriented X3 - Psychiatric Psychiatric exam: Normal affect, Normal mood - Skin Skin exam: Dry, Intact, Normal color, Warm Course Vital Signs 12/11/18 21:19 Temperature 98.4 F Pulse Rate [ 65 Left] Respiratory 16 Rate Blood Pressure 136/95 [Left Arm] Pulse Ox 100 - Reevaluation(s) Reevaluation #1: 12/11/18 22:32 pt is leaving AMA because her ride is leaving. she was educated to risks Medical Decision Making - Lab Data Result diagrams: 12/11/18 22:00 Lab Results 12/11/18 12/11/18 Range/Units 22:00 22:00 WBC 5.6 (4.2-12.2) K/uL RBC 3.73 L (3.80-5.40) M/uL Hgb 11.3 L (11.6-16.0) gm/dl Hct 36.3 (35.0-47.0) % MCV 97.3 H (81-97) fl MCH 30.2 (27-33) pg MCHC 31.1 L (32-36) g/dl RDW 13.4 (11.5-14.5) % Plt Count 140 (130-400) K/uL MPV 11.9 H (7.4-10.4) fl Gran % 55.3 (47-80) % Lymphocytes % 35.5 (16-45) % Monocytes % 7.0 (0-9) % Eosinophils % 2.0 (0-6) % Basophils % 0.2 (0-6) % Absolute Neutrophils 3.10 Urine Color Yellow Urine Appearance Clear Urine pH 6.0 (5.0-8.0) Ur Specific [place] 1.010 (1.002-1.030) Urine Protein Negative (NEGATIVE) Urine Glucose (UA) Negative (NEGATIVE) Urine Ketones Negative (NEGATIVE) Urine Blood Large H (NEGATIVE) Urine Nitrite Negative (NEGATIVE) Urine Bilirubin Negative (NEGATIVE) Urine Urobilinogen 0.2 (0.20 - 1.00) E.U./dL Ur Leukocyte Esterase Negative (NEGATIVE) Urine RBC 10 - 15 (NONE SEEN) Urine WBC 0 - 2 (0-2/hpf) Ur Epithelial Cells 3 - 6 (FEW) Urine Bacteria Few Disposition Disposition: Other Clinical Impression: Postoperative pain Disposition: Against Medical Advice Condition: (1) Good Instructions: Pain Management After Surgery (GEN) Additional Instructions: may return at anytime Forms: Patient Portal Access Quality - Quality Measures Quality Measures: N/A - Blood Pressure Screening Does Patient Have Any of the Following: No Blood Pressure Classification: Hypertensive Reading Systolic Measurement: 136 Diastolic Measurement: 95 Screening for High Blood Pressure: < First Hypertensive BP, F/U Documented > [G8950] First Hypertensive Follow-up Interventions: Follow-up with rescreen GT 1 day and LT 4 weeks.
--- NOTE | 2018-12-11 22:40 | CT SCAN REPORT ---
EXAMINATION: CT Abdomen and Pelvis without IV Contrast EXAM DATE: 12/11/2018 10:23 PM TECHNIQUE: Standard protocol CT imaging of the abdomen and pelvis was performed without intravenous c ontrast. INDICATION: Recent ventral hernia repair, postoperative pain COMPARISON: 11/30/2018 ENCOUNTER: Not applicable CT ABDOMEN AND PELVIS FINDINGS: Lung Bases: Included extent of the lung bases are clear. Hepatobiliary: Stable calcification lateral dome of liver on the right which is most likely granuloma tous. Liver is otherwise normal. The gallbladder is absent. There is no biliary dilatation. Pancreas: The pancreas is normal. Spleen: The spleen is not enlarged. Adrenals: The adrenal glands are normal. Gastrointestinal: The stomach and small bowel are normal with no obstruction or inflammation. The lauren endix is not identified. The large bowel is within normal limits. Reproductive Organs: Unremarkable Lymphatic System: There is no adenopathy within the abdomen or pelvis. Vasculature: Normal caliber abdominal aorta Peritoneum: Trace free fluid in the pelvis which is likely physiologic. No free air. Assessment of the solid organs, soft tissues, and vascular structures is overall limited on noncontra st imaging, IMPRESSION: There is a small amount of air and fluid in the subcutaneous tissues at the operative incision site. There is no evidence of recurrent ventral hernia. This is most likely postoperative in nature. Infect ion is felt much less likely but cannot be entirely excluded. Dictated by: J Carlos Jimenez DO on 12/11/2018 10:31 PM. .
== END 2018-12-11 22:45 | disposition left against medical advice (07) ==
LOC: ER 21:00
DX: G89.18 Other acute postprocedural pain (principal); R10.9 Unspecified abdominal pain; F17.210 Nicotine dependence, cigarettes, uncomplicated
CPT/HCPCS: 74176; 81001; 85025; 99284